=== PATIENT | male | born 1960 | race Caucasian/White ===

== ENCOUNTER 2016-05-05 06:08 | Inpatient (IN) | payer OTHER ==
--- NOTE | 2016-04-27 18:47 | HP ---
HISTORY AND PHYSICAL: DATE OF ADMISSION: 05/05/16 DATE OF OFFICE VISIT: 04/27/16 PROVIDER: Dr. Harrington. (dictated by HERMAN Carrillo) PROCEDURE: Left total hip arthroplasty. CHIEF COMPLAINT: Preop for left total hip arthroplasty. HISTORY OF PRESENT ILLNESS: Mr. Miller is a 55-year-old male who presents today for his preop for his left total hip replacement on 05/05/16. The patient works as a postman and states that he is having pain down his thigh. The patient has failed all conservative measures and is now pursuing an elective left total hip arthroplasty. PAST MEDICAL HISTORY: 1. Localized primary osteoarthritis of the pelvic region and thigh. 2. Benign essential hypertension. 3. Pure hypercholesterolemia. PAST SURGICAL HISTORY: 1. Right biceps tendon repair. 2. Basal cell carcinoma removal. 3. Hernia repair. 4. Mullen teeth removal. MEDICATIONS: 1. Zocor 40 mg 1 tablet by mouth at bedtime. 2. Fluticasone propionate 50 mcg per ACT, it is 2 intranasal puffs once daily. 3. Hydrochlorothiazide 25 mg half a tablet once daily. 4. Aspirin 81 mg 1 tablet by mouth every day. ALLERGIES: COMPAZINE, NOVOCAIN, and EPINEPHRINE. FAMILY HISTORY: Father 2000 due to heart failure. Mother currently 91 , hypertension, high cholesterol, and basal cell cancer. SOCIAL HISTORY: The patient denies any history of smoking, denies any illicit drug use. The patient admits to drinking only occasionally. REVIEW OF SYSTEMS: General: The patient denies any fevers, chills, or night sweats. No known anesthesia problems. HEENT: The patient denies any headaches , lightheadedness, or syncopal episodes. Cardiothoracic: The patient denies any chest pain, heart palpitations, or edema. Pulmonary: The patient denies any shortness of breath with exertion, chronic cough, COPD, or asthma. GI: The patient denies any nausea, vomiting, diarrhea, or constipation. The patient also denies any history of GERD. : The patient denies any nocturia, urinary frequency, or urgency. MSK: The patient admits to pain in the thigh on the left side and of the hip. The patient denies any chronic or intermittent back pain or fracture. Neuro: The patient admits to some tingling sensation in his finger tips after working a long day. The patient denies any numbness, history of seizures, or stroke. Integument: The patient denies any abrasions, lesions, rashes, lumps, or open sores. Endocrine: The patient denies any diabetes or thyroid issues. Hematology: The patient denies any easy bruising, anemia, or excessive bleeding. PHYSICAL EXAMINATION GENERAL: The patient is alert, awake, and oriented, 55-year-old male in no acute distress. He has an appropriate mood and affect. HEENT: Normocephalic, atraumatic. Hearing and vision are grossly intact. PULMONARY: Lungs are clear to auscultation bilaterally with no wheezes, rales, or rhonchi. CARDIAC: Regular rate and rhythm. Normal S1 and S2. No appreciable S3 or S4. No murmurs, rubs, or gallops appreciated. The patient has no edema. GI: Normal bowel sounds in all 4 quadrants. The patient's abdomen is soft and nontender to palpation in all 4 quadrants. MUSCULOSKELETAL: Left lower extremity: The patient's skin is intact. No tenderness on palpation around the hip. The patient is able to extend to 0 degrees, flex to 90 degrees, 0 degrees of internal rotation, 30 degrees of external rotation. All rotation of the hip causes pain. The patient has 5/5 ankle dorsiflexion and plantar flexion strength. Full sensation to light touch in lower extremities bilaterally. 2+ palpable dorsalis pedis pulse and posterior tibial pulse bilaterally. DIAGNOSTIC STUDIES: New radiographs of the hip were obtained today and osteoarthritis was seen in the left hip. IMPRESSION: Preop for left total hip arthroplasty. PLAN: The patient will return 10 to 14 days postoperatively for suture/staple removal and followup. A prescription for Percocet 5/325, Colace, and warfarin 2 mg has been sent to the primary pharmacy on record to be used postoperatively. It was discussed with the patient the use of a local anesthetic in the operating room. The patient stated that he has been to the dentist multiple times since he was first found to have a problem with NOVOCAIN and it was found that lidocaine without epinephrine is okay and has caused no adverse reactions. Also, Marcaine has caused no adverse reactions too. The possible risks and complications of surgery were also discussed with the patient today and signed consent was filled out today. HERMAN CARRILLO [id number]/[facility] #: [id number] EDITH
[~2016-05-05 06:08] MED LIST: Buffered Lidocaine 1% SYR 3ML* 3 ML/SYR SYRINGE INTRADERM ONE; Famotidine IV* 10 MG/ML 2 ML (20 mg) IV ONE; Metoclopramide IV* 5 MG/ML 2 ML VIAL IV SLOW PU ONE; celeCOXIB CAP* 200 MG PO ONE
[2016-05-05] MEDS ORDERED: Metoclopramide IV* 5 MG/ML 2 ML VIAL ONE (06:26)
[2016-05-05] MEDS ORDERED: Famotidine IV* 10 MG/ML 2 ML (20 mg) ONE (06:26)
[2016-05-05] MEDS ORDERED: ceFAZolin 2 GM PREMIX (*) 2 GM/50 ML BAG IVPB ONE (06:27)
[2016-05-05] MEDS ORDERED: Gabapentin CAP(*) 300 MG ONE (06:27)
[2016-05-05] MEDS ORDERED: Buffered Lidocaine 1% SYR 3ML* 3 ML/SYR SYRINGE ONE (06:27)
[2016-05-05] MEDS ORDERED: celeCOXIB CAP* 100 MG ONE (06:27)
[2016-05-05] MEDS: Gabapentin CAP(*) 300 MG PO ONE ×2 (06:45→06:46)
[2016-05-05] MEDS ORDERED: KETAMINE HCL* 50 MG/ML 10 ML VIAL ONE (06:56)
[2016-05-05] MEDS ORDERED: Dexamethasone IV* 4 MG/ML 1 ML (4 MG) ONE (06:56)
[2016-05-05] MEDS ORDERED: fentaNYL* 50 MCG/ML 2 ML VIAL (100 MCG VIAL) ONE (06:56)
[2016-05-05] MEDS ORDERED: Lidocaine 2% MPF* 2 ML VIAL ONE (06:56)
[2016-05-05] MEDS ORDERED: Morphine PF AMP (0.5MG/ML)* 5 MG/10 ML AMP ONE (06:56)
[2016-05-05] MEDS ORDERED: Bupivacaine 0.5% SDV PF* 30 ML VIAL ONE (06:56)
[2016-05-05] MEDS ORDERED: Midazolam* 1 MG/ML 5 ML VIAL (5 MG) ONE (06:56)
[2016-05-05] MEDS ORDERED: Propofol* 10 MG/ML 20 ML BTL IV PUSH ONE (06:56)
[2016-05-05] MEDS ORDERED: Ondansetron INJ* 2 MG/ML VIAL ONE (06:56)
[2016-05-05] MEDS ORDERED: Midazolam* 1 MG/ML 2 ML VIAL (2 MG) ONE (07:50)
[2016-05-05] MEDS ORDERED: Propofol* 500 MG/50 ML BTL ONE (08:05)
[2016-05-05] MEDS ORDERED: fentaNYL* 50 MCG/ML 2 ML VIAL (100 MCG VIAL) IV PRN (09:05)
[2016-05-05] MEDS ORDERED: Ondansetron INJ* 2 MG/ML VIAL IV PRN ×2 (09:05→09:06)
[2016-05-05] MEDS ORDERED: diPHENhydraMINE IV* 50 MG/ML 1 ml VIAL (BENADRYL) IV PRN ×2 (09:06→23:46)
[2016-05-05] MEDS ORDERED: oxyCODONE/Acetamin 5/325 MG* TAB PO PRN ×3 (09:06→23:46)
[2016-05-05] MEDS ORDERED: Naloxone* 0.4 MG/ML 1 ML VIAL IV PRN (09:06)
[2016-05-05] MEDS ORDERED: EPHEDrine (Pressors)* 50 MG/ML VIAL IV PUSH PRN (09:13)
[2016-05-05] MEDS ORDERED: Labetalol IV* 5 MG/ML 20 ML VIAL ONE (09:27)
--- NOTE | 2016-05-05 09:36 | RAD ---
INDICATION: Intraoperative crosstable radiograph of the left hip TECHNIQUE: Single AP view taken in the operating room of the left hip during left hip arthroplasty FINDINGS: The single spot film depicts the femoral component and acetabular component of the left hip prosthesis. The left femoral head component is absent at the time of this x-ray. The visualized bones appear to be intact without evidence of periprostatic fracture. IMPRESSION: Intraoperative findings as described above.
[2016-05-05] MEDS ORDERED: Ropivacaine* 300 MG in NS 0.9% 250 ML* 240 ML EPIDURAL SCH (10:00)
[2016-05-05] MEDS ORDERED: Acetaminophen TAB* 325 MG PO PRN (10:24)
--- NOTE | 2016-05-05 11:17 | RAD ---
INDICATION: Left hip pain. Hip replacement. COMPARISON: April 27, 2016 TECHNIQUE: An AP view of the left hip and a crosstable lateral view were obtained FINDINGS: Bones: There are no acute bony findings. There is left hip arthroplasty. The left hip prosthesis appears normally seated Joint spaces: Left hip arthroplasty. SI joints: The left SI joint is intact. Other: None IMPRESSION: LEFT HIP ARTHROPLASTY WITHOUT EVIDENCE OF HARDWARE FAILURE.
--- NOTE | 2016-05-05 11:20 | RAD ---
Indication: LEFT total hip replacement. Comparison: Dedicated LEFT hip exam 0946 hours and April 27, 2016 radiographs. Technique: AP pelvis. Report: LEFT total hip prosthesis in place. Anatomic alignment. Negative for periprosthetic fracture. Unremarkable soft tissue contours. Mild to moderate osteoarthritis of the RIGHT hip. Probable ankylosed RIGHT sacroiliac joint. IMPRESSION: Unremarkable immediate postoperative appearance of the LEFT total hip prosthesis.
[2016-05-05] MEDS ORDERED: Bisacodyl SUPP* 10 MG SUPP PR PRN (15:00)
[2016-05-05] MEDS ORDERED: Polyethylene Glycol 3350* 17 GM PACKET PO PRN (15:00)
[2016-05-05] MEDS: ceFAZolin 1 GM in Dextrose (*) 1 GM/50 ML BAG IVPB SCH (15:47)
[2016-05-05] MEDS ORDERED: Warfarin TAB(*) 4 MG PO ONE (17:00)
[2016-05-05] MEDS: Magnesium Hydroxide LIQ* 30 ML UDC PO SCH (20:15)
[2016-05-05] MEDS: Docusate CAP* 100 MG PO SCH (20:15)
--- NOTE | 2016-05-05 22:20 | OP ---
DATE OF OPERATION: 05/05/16 - ROOM #343 DATE OF : 58 ATTENDING SURGEON: Esperanza Harrington MD ORIENTOR: HERMAN Silveira ANESTHESIOLOGIST: Dr. Husain. ANESTHESIA: Spinal. PRE-OP DIAGNOSIS: Severe end-stage degenerative osteoarthritis of the left hip joint. POST-OP DIAGNOSIS: Severe end-stage degenerative osteoarthritis of the left hip joint. OPERATIVE PROCEDURE: Left total hip arthroplasty. HARDWARE USED: Tritanium hemispherical cluster hole shell, size 58F. For the acetabulum was a 40F Trident X3 0-degree polyethylene insert. For the femur, an Accolade TMZF, size 3, 127-degree neck. A Catia 40 +0 Biolox delta femoral head with adapter sleeve. COMPLICATIONS: None. EBL: 300 cc. SPECIMEN: Femoral head and acetabular bone reaming sent to pathology. BRIEF HISTORY/INDICATION: Mr. Miller is a 55-year-old gentleman with years of increasingly severe left hip pain. He failed conservative treatment with anti- inflammatories, pain pills, physical therapy, and intra-articular injection. Radiographs confirmed [id number] arthritis and he elected to under a left total hip arthroplasty due to continued pain and decreased quality of life. Informed consent was obtained from the patient. He understood the risks of the procedure included, but were not limited to bleeding, infection, damage to nearby structures, continued pain, need for further surgery, intraoperative fracture, nerve palsy, hardware failure or loosening, dislocation, leg length discrepancy, stroke, heart attack, blood clot, and . He wished to proceed. INTRAOPERATIVE FINDINGS: The patient was noted to have some osteophyte formation along the femoral head-neck junction and anterior acetabulum. Full thickness loss of cartilage along the entire acetabulum and femoral head. DESCRIPTION OF PROCEDURE: Mr. Miller was identified in the preanesthesia unit. His left lower extremity was marked as the correct operative side. Informed consent was signed and placed in the chart. The patient was taken to the operating room and placed under spinal anesthesia. A Larry catheter was placed. The patient was placed in the right lateral decubitus position on the peg board with all bony prominences well padded. Preop time-out was made to correctly identify the patient's side and site. The left lower extremity was prepped and draped in the usual sterile fashion. Perioperative antibiotics were given within 1 hour of incision. A 14-cm posterior hip incision was made with a 10-blade and carried down to the fascial layer. Lateral fascia layer was then incised in line with the skin incision. A Charnley retractor was placed. Piriformis and conjoint tendons were identified and elevated off the posterolateral femur using electrocautery. These were tagged with two #5 Ethibonds. Electrocautery was used to make a posterior capsular flap and this was also tagged with two #5 Ethibonds. The hip was carefully dislocated. Lesser troch to center of the femoral head measured 60 mm. Oscillating saw was used to make the appropriate femoral neck cut. The femoral head was sent to pathology. The femur was carefully retracted anteriorly. After appropriate placement of retractors, the acetabulum was easily visualized. Long handled knife was used to sharply remove any remaining labrum from the acetabular rim. The acetabulum was sequentially reamed up to a size 57. Size 57 had good bleeding bone bed and a 57 trial had excellent fit. 58 Tritanium cluster hole shell was chosen. This was impacted into the acetabulum without difficulty. The cup was extremely stable with satisfactory anteversion and abduction angle. A 40F 0- degree Trident X3 polyethylene liner was chosen. This was impacted into the acetabulum without difficulty. Stability of the liner was checked and rechecked and noted to be stable. Attention was next turned to preparation of the proximal femur. Box cut osteotome and canal finder were used to enter the proximal femur. The femur was sequentially broached up to a size 3. Size 3 broach had excellent stability. A 127-neck trial with a 40 +0 head trial was chosen. Lesser troch to center of the femoral head measured 59 mm. The hip was reduced and taken through range of motion. The hip was noted to be stable in all positions. There was good soft tissue tension and proximate leg lengths. The hip was carefully dislocated. All trials were carefully removed. Final implant for the femur was an Accolade TMZF, size 3, 127-degree neck. A 40 +0 ceramic Biolox delta femoral head and adapter sleeve were chosen. These were impacted onto the femoral neck. Lesser troch to center of the femoral head measured approximately 60 mm. The hip was reduced and taken through a range of motion. The hip was stable in all positions. There was good soft tissue tension. The hip was copiously irrigated with sterile saline. Previously tagged capsule and tendons were reapproximated to the posterolateral femur through 2 trochanteric drill holes. The lateral fascial layer was reapproximated using interrupted #1 Vicryls. The rest of the incision was closed in a layered fashion using 0 and 2-0 Vicryls. Skin was closed using running 3-0 Monocryl and Dermabond. Sterile Adaptic, 4x4s, and paper tape were used to cover the incision. The patient's anesthesia was reversed without difficulty. He was taken to the PACU in stable condition. Intended weightbearing will be weightbearing as tolerated. Intended DVT prophylaxis will be Coumadin with a Lovenox bridge. [id number]/[facility] #: [id number] [facility]
[2016-05-05] MEDS ORDERED: oxyCODONE TAB* 5 MG TAB PO PRN (23:46)
[2016-05-06] MEDS: ceFAZolin 1 GM in Dextrose (*) 1 GM/50 ML BAG IVPB SCH ×2 (00:11→07:24)
[2016-05-06] MEDS ORDERED: Morphine INJ* 10 MG/ML 1 ML CARPUJECT IV PRN (06:00)
[2016-05-06] MEDS ORDERED: Ondansetron TAB* 4 MG PO PRN (06:01)
[2016-05-06] MEDS ORDERED: Ondansetron INJ* 2 MG/ML VIAL IV PRN (06:01)
[2016-05-06 07:37] LABS: Hematocrit 35 % (42-52); Hemoglobin 11.8 g/dl (14.0-18.0)
--- NOTE | 2016-05-06 07:49 | PN ---
Progress Note - Progress Note SOAP: Subjective: Pt. reports pain is controlled. Objective: LLE - dressing c/d/i. distally +df/pf, full sens lt, 2+ dp pulse. Vital Signs: Temp Pulse Resp BP Pulse Ox 98.4 F 72 16 106/53 95 05/06/16 03:09 05/06/16 03:09 05/06/16 07:26 05/06/16 03:09 05/06/16 03:30 Laboratory Results - last 24 hr 05/06/16 06:53 Hgb 11.8 L Hct 35 L Assessment: 55 yo M pod 1 s/p LTHA Plan: wbat with post hip precautions pt/ot am labs pending coumadin with lovenox bridge. likely d/c to home tomorrow with vns
[2016-05-06 07:51] LABS: BUN/Creatinine Ratio 16.3 (8-20); Calcium 8.4 mg/dL (8.6-10.3); EGFR African American 128.6 (>60); Potassium 4.1 mmol/L (3.5-5.0)
[2016-05-06] MEDS ORDERED: Atorvastatin* 20 MG TAB PO SCH (09:00)
[2016-05-06] MEDS: Hydrochlorothiazide TAB* 25 MG PO SCH (09:31)
[2016-05-06] MEDS: oxyCODONE/Acetamin 5/325 MG* TAB PO PRN ×4 (09:33→21:51)
[2016-05-06] MEDS: Docusate CAP* 100 MG PO SCH ×2 (09:34→21:23)
[2016-05-06] MEDS: Vitamin THERAPEUTIC TAB PO SCH (09:34)
[2016-05-06] MEDS: Magnesium Hydroxide LIQ* 30 ML UDC PO SCH ×2 (09:35→21:23)
[2016-05-06] MEDS: Enoxaparin(*) 40 MG/0.4 ML SYR SUBCUT SCH (09:36)
[2016-05-06] MEDS ORDERED: Warfarin TAB(*) 4 MG PO ONE (17:00)
[2016-05-07] MEDS: oxyCODONE/Acetamin 5/325 MG* TAB PO PRN ×3 (03:36→11:35)
[2016-05-07 07:08] LABS: Hematocrit 36 % (42-52); Hemoglobin 12.1 g/dl (14.0-18.0)
[2016-05-07] MEDS: Vitamin THERAPEUTIC TAB PO SCH (08:56)
[2016-05-07] MEDS: Hydrochlorothiazide TAB* 25 MG PO SCH (08:56)
[2016-05-07] MEDS: Docusate CAP* 100 MG PO SCH (08:57)
[2016-05-07] MEDS: Magnesium Hydroxide LIQ* 30 ML UDC PO SCH (08:58)
--- NOTE | 2016-05-07 09:30 | PN ---
Progress Note - Progress Note SOAP: Subjective: Pt. reports no pain at rest, pain with PT. + BM overnight. Objective: LLE - dressing changed, inc c/d/i. thigh swollen but compressible. distally nvi. Vital Signs: Temp Pulse Resp BP Pulse Ox 99.7 F 74 18 114/66 96 05/07/16 07:37 05/07/16 07:37 05/07/16 08:00 05/07/16 07:37 05/07/16 07:37 Laboratory Results - last 24 hr 05/07/16 05/07/16 06:57 06:57 Hgb 12.1 L Hct 36 L INR (Anticoag Therapy) 1.61 H Assessment: 55 yo M pod 2 s/p LTHA Plan: wbat with post hip precautions pt/ot 6 mg coumadin mon and monday, recheck inr on mon home today with vns
[2016-05-07] MEDS: Enoxaparin(*) 40 MG/0.4 ML SYR SUBCUT SCH (11:03)
[2016-05-07 12:03] VITALS: BP 120/67
[2016-05-07] MEDS ORDERED: Warfarin TAB(*) 6 MG PO SCH (17:00)
[2016-05-07] MEDS ORDERED: Atorvastatin* 20 MG TAB PO SCH (21:00)
--- NOTE | 2016-05-09 08:57 | DS ---
DISCHARGE SUMMARY: DATE OF ADMISSION: 05/05/16 DATE OF DISCHARGE: 05/07/16 PROVIDER: Esperanza Harrington MD. ADMITTING DIAGNOSIS: Severe right hip osteoarthritis. PROCEDURE: Left total hip arthroplasty. SECONDARY DIAGNOSIS: 1. Primary osteoarthritis of the pelvis and thigh. 2. Benign essential hypertension. 3. Pure hypercholesterolemia. HISTORY OF PRESENT ILLNESS: Mr. Miller is a 55-year-old male who presents to the clinic for ongoing left hip pain due to end-stage severe osteoarthritis of the left hip. The patient has failed conservative measures and has therefore, agreed to undergo a left total hip arthroplasty with Dr. Harrington on 05/05/16. HOSPITAL COURSE: Mr. Miller was admitted to the [facility] on . He underwent a left total hip arthroplasty. Postoperatively, he recovered on the short stay surgical unit. Postoperative day 1, his Larry was removed and he was able to urinate on his own. He was advanced to a regular diet without difficulty and his pain was controlled with p.o. Percocet and he was restarted on home medications. His labs and vitals remained stable. He was able to bear weight as tolerated on the left lower extremity. He advanced appropriately with physical therapy and occupational therapy. His deep vein thrombosis prophylaxis was managed with Lovenox and Coumadin until he reached a therapeutic INR. By postoperative day 2, he was orthopedically and medically stable for discharge to home with VNS services. PHYSICAL EXAMINATION: General: A 55-year-old, well-developed, well-nourished male, in no acute distress, alert and oriented x3. Left lower extremity, surgical incision on the posterior aspect of the hip. No erythema, drainage or signs of infections. Dry sterile dressing was applied. He has active ankle dorsiflexion and plantarflexion, +2 DP pulses. Sensation intact to light touch distally. LABORATORY DATA: On day of discharge, hemoglobin of 12.1, hematocrit 36, INR of 1.16. DISCHARGE MEDICATIONS: New medications at discharge to include : 1. Colace 100 mg by mouth up to three times a day for constipation. 2. Percocet 5/325, one to two tabs my mouth every 4 to 6 hours as needed for pain. 3. Warfarin 2 mg tabs by mouth daily as directed. Home medications continued to include: 1. Simvastatin 20 mg, two tabs by mouth daily. 2. Aspirin 81 mg, one by mouth daily. 3. Hydrochlorothiazide 25 mg, half a tab by mouth daily. 4. Ibuprofen 600 mg by mouth every 8 hours as needed. 5. Fish oil 1000 mg, one cap by mouth daily. 6. Naproxen 500 mg by mouth twice a day as needed. CONDITION ON DISCHARGE: Stable. DISCHARGE INSTRUCTIONS: Mr. Miller is a 55-year-old gentleman, postop day 2, status post left total hip arthroplasty which was uncomplicated. He is orthopedically and medically stable for discharge to home with VNS services. His labs and vitals are stable. He will restart his home medications. He will take 6 mg of Coumadin ton and 6 mg on Monday, and we will recheck his INR on Monday. He will have INR draws on Monday and with visiting nursing services. He is weightbearing as tolerated to left lower extremity. He will do home PT twice a week. He will Percocet for pain control and Colace up to three times a day for constipation. He will follow up with Dr. Harrington in 10 to 14 days for an incision check and suture removal. He may shower on postoperative day 4, but he may not submerge the wound in water. He was instructed to go to the ER if he develops chest pain, shortness of breath, calf pain or swelling or fever. He was instructed not to take aspirin, naproxen or ibuprofen while he is on Coumadin. He may resume these in one month when his Coumadin is finished. He understands to call the office with any questions or concerns. HERMAN CUNHA [id number]/[facility] #: [id number] EDITH
== END 2016-05-07 14:50 | disposition home health service (06) | DRG 301 ==
LOC: OR 06:08 → SSU 10:24
PROVIDERS: ADMIT Orthopaedic Surgery Adult Reconstructive Orthopaedic Surgery; ATTEND Orthopaedic Surgery Adult Reconstructive Orthopaedic Surgery
PROC: 0SRB01Z Replacement of Left Hip Joint with Metal Synthetic Substitute, Open Approach (ICD-10-PCS; principal; 2016-05-05 07:30)
DX: M16.12 Unilateral primary osteoarthritis, left hip (principal); I10 Essential (primary) hypertension; E78.00 Pure hypercholesterolemia, unspecified; Z85.828 Personal history of other malignant neoplasm of skin; Z88.8 Allergy status to other drugs, medicaments and biological substances; Z80.8 Family history of malignant neoplasm of other organs or systems; Z82.49 Family history of ischemic heart disease and other diseases of the circulatory system; M25.752 Osteophyte, left hip
CPT/HCPCS: 36415; 62327; 72170; 80048; 85014; 85018; 85610; 88304; 88311; 94760; A9270-GY; C1776; J0690; J1100; J1650; J2250; J2405; J2704; J2765; J2795; J3010

== ENCOUNTER 2020-09-22 07:35 | Observation (INO) ==
[~2020-09-22 07:35] MED LIST changes: -Buffered Lidocaine 1% SYR 3ML* 3 ML/SYR SYRINGE INTRADERM ONE; +Buffered Lidocaine 1% SYRIN 1 ml INTRADERM ONE; -Famotidine IV* 10 MG/ML 2 ML (20 mg) IV ONE; +Lactated Ringers 1000 ml BAG 1,000 ML IV SCH; -Metoclopramide IV* 5 MG/ML 2 ML VIAL IV SLOW PU ONE; -celeCOXIB CAP* 200 MG PO ONE
[2020-09-22] MEDS ORDERED: ceFAZolin 2 GM PREMIX 2 GM/50 ML BAG ONE (07:42)
[2020-09-22] MEDS ORDERED: ROPIVACAINE 5 MG/ML 30 ML BTL (0.5%) ONE (08:51)
[2020-09-22] MEDS ORDERED: Midazolam 2 mg/2 ml VIAL 1 mg/ml 2 ml VIAL (2 mg) ONE ×2 (08:56→09:56)
[2020-09-22] MEDS ORDERED: Phenylephrine IV 10 MG/ML 1 ml VIAL ONE (08:56)
[2020-09-22] MEDS ORDERED: fentaNYL 100 mcg/2 ml 50 MCG/ML VIAL ONE (08:56)
[2020-09-22] MEDS ORDERED: Propofol 10 MG/ML 20 ML BTL ONE ×2 (10:42→11:18)
[2020-09-22] MEDS ORDERED: Lactulose 30 ml UDC PO PRN (10:50)
[2020-09-22] MEDS ORDERED: Ondansetron 4 mg VIAL 2 MG/ML 2 ml VIAL IV PRN (10:50)
[2020-09-22] MEDS ORDERED: diPHENhydraMINE 25 mg TAB PO PRN (10:50)
[2020-09-22] MEDS ORDERED: Magnesium Hydroxide LIQ 30 ML UDC PO PRN (10:50)
[2020-09-22] MEDS ORDERED: Ondansetron ODT 4 mg TAB 4 MG TAB PO PRN (10:50)
[2020-09-22] MEDS ORDERED: Morphine 2 MG/ML SYRINGE IV PRN (10:50)
[2020-09-22] MEDS ORDERED: diPHENhydraMINE IV 50 MG/ML 1 ml VIAL (BENADRYL) IV PRN ×2 (10:50→10:56)
[2020-09-22] MEDS ORDERED: Naloxone 0.4 mg VIAL 0.4 mg/ml 1 ml VIAL IV PRN (10:56)
[2020-09-22] MEDS ORDERED: DiMENhydriNATE IV 50 mg/ml 1 ml VIAL IV PUSH PRN (10:56)
[2020-09-22] MEDS ORDERED: fentaNYL 100 mcg/2 ml 50 MCG/ML VIAL IV PRN (10:56)
[2020-09-22] MEDS ORDERED: Ondansetron 4 mg VIAL 2 MG/ML 2 ml VIAL ONE (11:00)
[2020-09-22] MEDS: Lactated Ringers 1000 ml BAG 1,000 ML IV SCH (14:34)
[2020-09-22] MEDS ORDERED: NS 0.9% 500 ml BAG 500 ML IV ONE (18:13)
[2020-09-22] MEDS: ceFAZolin 1 GM ADVAN 1 GM in NS 0.9% 50 ML 50 ML IVPB SCH (19:24)
[2020-09-22] MEDS: Magnesium Hydroxide LIQ 30 ML UDC PO SCH (20:46)
[2020-09-22] MEDS ORDERED: CMC:Simvastatin 20 mg TAB (NF) PO SCH (21:00)
[2020-09-23] MEDS: ceFAZolin 1 GM ADVAN 1 GM in NS 0.9% 50 ML 50 ML IVPB SCH ×2 (01:52→09:50)
[2020-09-23] MEDS: Lactated Ringers 1000 ml BAG 1,000 ML IV SCH (01:52)
[2020-09-23 04:47] LABS: Hematocrit 38 % (42-52); Hemoglobin 12.9 g/dL (14.0-18.0); Mean Platelet Volume 10.7 fL (7.4-10.4); Platelet Count 131 10^3/uL (150-450)
[2020-09-23 05:06] LABS: EGFR African American 94.4 (>60); Potassium 3.6 mmol/L (3.5-5.0)
[2020-09-23] MEDS: Magnesium Hydroxide LIQ 30 ML UDC PO SCH (08:37)
[2020-09-23] MEDS ORDERED: Vitamin THERAPEUTIC TAB PO SCH (09:00)
[2020-09-23 11:26] VITALS: BP 115/70
== END 2020-09-23 15:05 | disposition home or self-care (01) ==
LOC: SSU 07:35 → OR 07:35 → EDSTATUS 10:00
PROVIDERS: ADMIT Orthopaedic Surgery Adult Reconstructive Orthopaedic Surgery; ATTEND Orthopaedic Surgery Adult Reconstructive Orthopaedic Surgery